=== PATIENT | male | born 1985 | race Caucasian/White ===

== ENCOUNTER 2018-07-22 02:20 | Emergency (ER) | payer OTHER ==
[~2018-07-22] VITALS: Ht 180.3 cm; Wt 77.1 kg
[2018-07-22 02:20] VITALS: BP 126/76
--- NOTE | 2018-07-22 03:15 | NUR ---
Patient discharged in stable condition. Written and verbal after care and prescription & instructions given. long-term resources were provided. pt was also provided w/ a transportation tab. Patient verbalizes understanding of instruction.
== END 2018-07-22 03:49 | disposition home or self-care (01) ==
LOC: ER 02:24
DX: B86 Scabies (principal); L01.00 Impetigo, unspecified